=== PATIENT | female | born 1970 | race Caucasian/White ===

== ENCOUNTER 2022-11-24 14:05 | Observation (INO) | payer BC, SELFPAY ==
[2022-11-24] VITALS (27 sets, daily range): BP systolic 110–133; BP diastolic 67–96; PULSE 67–80; RESP 12–19; TEMP 36–37; O2SAT 98–100; BMI 22.6
--- NOTE | ~2022-11-24 | CT_ITS ---
EXAMINATION: CT brain wo con DATE: 11/24/2022 15:28 INDICATION: Syncope TECHNIQUE: Computed tomography (CT) of the head was performed without intravenous contrast. Sagittal and coronal reconstructions were performed. The mA was adjusted according to patient size. Iterative reconstruction technique was employed. The dose-length product was 605.33 mGy-cm. COMPARISON: None FINDINGS: No acute intracranial hemorrhage, acute infarction or abnormal extra axial fluid collection. Ventricl es are normal and symmetric. No mass/mass effect. The orbits, paranasal sinuses and mastoid air cells are normal. IMPRESSION: 1. Normal head CT. Reviewed, dictated and finalized at location A. MACY ASSOCIATE IMPRESSION: 1. Normal head CT.
--- NOTE | ~2022-11-24 | XR_ITS ---
EXAMINATION: XR chest 1V portable DATE: 11/24/2022 15:35 INDICATION: Syncope, weakness and dizziness TECHNIQUE: frontal view of the chest was obtained. COMPARISON: None FINDINGS: Calcified nodules in the right midlung zone consistent with old granulomatous disease. No other airsp jocelin opacities, pulmonary edema, pleural effusion or pneumothorax. The cardiomediastinal silhouette is normal. Visualized bones and soft tissues are unremarkable. IMPRESSION: 1. No acute cardiopulmonary disease. Reviewed, dictated and finalized at location A. O TELEVISION ANNOUNCER
--- NOTE | 2022-11-24 14:15 | ECG_ITS ---
Measurements Intervals [place] Rate: 69 P: 58 MI: 148 QRS: 68 QRSD: 87 T: 35 QT: 415 QTc: 445 Interpretive Statements SINUS RHYTHM INCOMPLETE RIGHT BUNDLE BRANCH BLOCK NONSPECIFIC ST & T-WAVE ABNORMALITY- DIFFUSE LEADS BASELINE WANDER- V4-V6 BORDERLINE ECG NO PREVIOUS ECG AVAILABLE FOR COMPARISON Electronically Signed On 11-24-2022 16:12:54 BONDING SUPERVISOR by David Barfield D.O.
[2022-11-24 14:45] LABS: Basophils Percent Auto 0.2 % (0.2-1.2); Eosinophils Absolute Auto 0.1 K/mm3 (0-0.3); Eosinophils Percent Auto 0.5 % (0-4.4); Hematocrit 50.4 % (37.0-47.0); Hemoglobin 16.4 g/dL (12.0-15.0); Immature Granulocyte Absolute 0.03 K/mm3 (0.00-0.031); Immature Granulocyte Percent A 0.3 % (0-0.5); Lymphocytes Absolute Auto 0.75 K/mm3 (0.9-3.2); Lymphocytes Percent Auto 6.6 % (18.3-44.2); Mean Corpuscular HGB Conc 32.5 g/dl (32-36); Mean Corpuscular Hemoglobin 30.9 pg (26-34); Mean Corpuscular Volume 95.1 fl (80-100); Mean Platelet Volume 9.7 fl (7.4-10.4); Monocytes Absolute Auto 0.6 K/mm3 (0.1-0.6); Monocytes Percent Auto 5.4 % (2.6-8.5); Neutrophils Absolute Auto 9.9 K/mm3 (1.3-6.7); Platelet Count Result 238 k/mm3 (150-375); Red Cell Distribution Width 12.1 % (11.5-14.5); White Blood Count 11.3 K/mm3 (4.5-10.0)
[2022-11-24 14:45] LABS: Appearance Urine Clear (Clear); Bilirubin Urine Negative (Negative); Blood Urine Negative (Negative); Color Urine Yellow (Yellow); Glucose Urine UA Negative (Negative); Ketones Urine Negative (Negative); Leukocyte Esterase Ur Negative LEU/UL (Negative); Nitrate Urine Negative (Negative); Protein Urine Negative (Negative); Urobilinogen Urine 0.2 mg/dL (<2.0); pH Urine 5.5 (5.0-9.0)
[2022-11-24 14:52] LABS: Mucus Urine Rare /lpf; RBC Urine 0-2 /hpf (0-2); WBC Urine 0-3 /hpf
[2022-11-24 14:59] LABS: Add Urine Microscopic? NO
--- NOTE | 2022-11-24 15:09 | ED.DIZZY ---
HPI - Dizziness General Chief Complaint: Dizziness Stated Complaint: dizziness Time Seen by Provider: 11/24/22 14:13 History of Present Illness HPI Narrative: 51 years old white female woke up this morning okay, went to run as usual, felt different, no stamina and with increased heart rate. Patient finished 3 miles, went back home started having intermittent dizziness associated with the severe nausea, at 11 AM her drove her to basketball game, [address], got dizzy again, gurgling and passed out for about 10 minutes, was not responding to verbal commands. Patient denies any urine incontinence or tongue bite. Currently patient feeling okay, but she feels like headache is coming on. Patient was in [place] for the last 2 days last menstrual period 1-1/2-year ago. She denies any fever, chills, vomiting, diarrhea, constipation, abdominal pain, chest pain or shortness of breath. Patient is healthy otherwise, not on any medications. Strong family history of cardiac disease. She does not smoke or drink or uses drugs. Related Data Allergies Allergy/AdvReac Type Severity Reaction Status Date / Time No Known Allergies Allergy Unknown Verified 11/24/22 14:11 Review of Systems Review of Systems: All systems reviewed & are unremarkable except as noted in HPI and below Exam Narrative: General appearance: Well-developed, well-nourished Skin: Normal color Head: Normocephalic, nontraumatic Eyes: Clear conjunctiva ENT: Oropharynx normal, ears normal, nose normal Neck: Supple, nontender Chest and respiratory: Airway patent, no respiratory distress, no accessory muscle use Heart: Regular rate/rhythm Abdomen: Soft, nontender, no organomegaly, quiet bowel sounds Vascular: Normal peripheral pulses, normal capillary refill. 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 tested, no gross motor deficit Course Vital Signs Vital signs: Vital Signs Temperature 36.0 C L 11/24/22 14:07 Pulse Rate 80 11/24/22 14:07 Respiratory Rate 16 11/24/22 14:07 Blood Pressure 129/86 11/24/22 14:07 Pulse Oximetry 100 11/24/22 14:07 Oxygen Delivery Room Air 11/24/22 14:07 Temperature 36.0 C L 11/24/22 14:07 Pulse Rate 75 11/24/22 14:21 Respiratory Rate 16 11/24/22 14:07 Blood Pressure 110/84 11/24/22 14:21 Pulse Oximetry 100 11/24/22 14:07 Oxygen Delivery Room Air 11/24/22 14:07 MDM - Dizziness MDM Narrative Medical decision making narrative: Patient is 51 years old white female, healthy otherwise came to the emergency room with intermittent dizziness and syncope allied 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 Patient reported that her heart was racing allied health professional today with the dizziness. Currently patient feeling okay. Differential diagnosis include tachyarrhythmia, seizure, electrolyte imbalance, orthostatic hypotension, or dehydration, Blood work-up, UA, EKG, chest x-ray, CT head without contrast ordered. Work-up showed no significant finding to explain patient condition. Patient will be admitted to telemetry meds, to be monitored for cardiac arrhythmia, 2D echo, carotid Doppler and a possible MRI of the brain. Differential Diagnosis Differential diagnosis: Likely other (Tachyarrhythmia, dizziness, syncope, less likely seizure.) Lab Data 11/24/22 14:33 11/24/22 14:33 Labs: Lab Results 11/24/22 11/24/22 11/24/22 Range/Units 14:32 14:32 14:33 WBC 11.3 H (4.5-10.0) K/mm3 RBC 5.30 (4.2-5.4) M/mm3 Hgb 16.4 H (12.0-15.0) g/dL Hct 50.4 H (37.0-47.0) % MCV 95.1 (80-100) fl MCH 30.9 (26-34) pg MCHC 32.5 (32-36) g/dl RD
[2022-11-24 15:17] LABS: Influenza A QL RT-PCR Negative (Negative); Influenza B QL RT-PCR Negative (Negative); RSV RNA, RT-PCR Negative (Negative); SARS-CoV-2 RNA PCR Negative
[2022-11-24 15:36] LABS: Alanine Aminotransferase 28 U/L (6-35); Albumin Level 4.9 g/dL (3.5-5.1); Alkaline Phosphatase 63 U/L (38-126); Anion Gap 8 mmol/L (8-16); Aspartate Amino Transferase 33 U/L (14-36); Bilirubin,Total 0.7 mg/dL (0.2-1.3); Blood Urea Nitrogen 19 mg/dL (7-17); Calcium 8.9 mg/dL (8.4-10.2); Carbon Dioxide 26 mmol/L (22-30); Chloride 102 mmol/L (98-107); Estimated CRCL calculation 83 ml/min; Estimated Glomerular Filt Rate > 60; Glucose 112 mg/dL (65-110); Potassium 4.2 mmol/L (3.4-5.0); Sodium 136 mmol/L (137-145)
[2022-11-24 15:47] LABS: Troponin I < 0.012 ng/mL (0.000-0.034)
[2022-11-24 16:14] LABS: Creatine Kinase 46 U/L (30-135)
[2022-11-24] MEDS: SODIUM CHLORIDE 0.9% IV 1,000 ML 125 ML IV CONT ×2 (16:22→23:47)
--- NOTE | 2022-11-24 16:57 | PM.IMHP ---
H&P: HPI History of Present Illness Date/Time: 11/24/22 16:57 Chief Complaint: Dizziness Narrative: This is a 51-year-old female patient and that woke up this morning to go on her usual run of 2-3 miles 2 to 3 times a week. The patient stated that she felt somewhat unusual. She decided to run the 3 miles and then came back home and felt dizzy on and off with some nausea at 11:00 a.m.. Patient stated that she took a nap to see if she would feel any better and she felt somewhat better. The patient then went on a [address] to a basketball game and when she was there she felt very nauseated and dizzy. Once the patient was in the car she leaned back and became very hot and nauseated. She wrote down the window to see if she would feel better and it did help. They pulled the car over at least 4 times and she thought she would vomit but she was only ranching. I blood count 11.3. Sodium 136. Troponin non reactive x2. Influenza a B RSV and COVID are all negative. The patient is being admitted to observation status on the date of service 11/24/2022. Review of Systems Review of Systems: See HPI All systems reviewed & are unremarkable except as noted in HPI and below Constitutional: Constitutional: Reports as per HPI and Reports no additional constitutional complaints Eyes: Eyes: Reports as per HPI and Reports no additional eye complaints ENT: Reports system reviewed and no additional complaints, except as documented and Reports Normal hearing present Cardiovascular: Cardiovascular: Reports no additional cardiovascular complaints Respiratory: Respiratory: Reports no additional respiratory complaints and Reports no additional respiratory complaints Gastrointestinal: Gastrointestinal: Reports as per HPI and Reports no additional gastrointestinal complaints Musculoskeletal: Musculoskeletal: Reports no additional musculoskeletal complaints Integumentary/Breasts: Skin/Breast: Reports system reviewed and no additional complaints, except as docu and Reports as per HPI Neurologic: Reports system reviewed and no additional complaints, except as documented, Reports as per HPI and Reports Normal hearing present Psychiatric: Psychiatric: Reports no additional psychiatric complaints and Reports as per HPI Endocrine: Endocrine: Reports no additional endocrine complaints Hematologic/Lymphatic: Hematologic/Lymphatic: Reports no additional hematologic/lymphatic complaints Allergic/Immunologic: Allergic/Immunologic: Reports no additional allergic/immunologic complaints [facility] Surgical History Surgical History (Updated 11/24/22 @ 22:16 by Kady Weems NP) History of D&C History of hysteroscopy Hx of breast implants, bilateral Which were later removed Kelly teeth extracted Family History Family History (Updated 11/24/22 @ 22:17 by Kady Weems NP) Other Healthy adult Grandparent Diabetes mellitus Cancer Social History Social History (Updated 11/24/22 @ 21:02 by Kady Weems NP) Social History: The patient lives with her who is the durable power state's attorney for healthcare. She has 4 children. 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 Lifelong nonsmoker. Patient occasionally has a glass a wine. She denies any marijuana or illicit drugs. Code status full code. Smoking status: Never smoker Alcohol intake: current Drinks per week: 2 Substance use: never Lack of Transportation: No Lack of Food: Never True Current Housing: I Have Housing Concerned About Future Housing: No Difficulty Paying Gas/Electric Bills: No Difficulty Paying for Meds: No Currently Unemployed: No Education: Bachelor's Degree Difficulty w/ Childcare or Family Care: No Spiritual care concerns: No Meds Home Medications and Allergies Home Medications Medication Instructions Recorded Confirmed Type multivitamin 1 tablet PO DAILY 11/24/22 11/24/22 History Allergies Allergy/AdvReac Type Jennifer
--- NOTE | 2022-11-24 17:42 | PC.NURSE ---
This patient, Sabi Zhu, was admitted to IMU Room 200-01. Patient/family oriented to hospital policies and general routines including ID bracelet, bed and alarms, visiting hours, pain management, procedures, bathroom and other care routines, personal items, smoking policy, room service/diet, and visiting hours. Information on how to activate the Rapid Response Team has been discussed. Patient/Family are encouraged to report perceived risks to care and to ask questions if they do not understand what they are told or what they should do.
[2022-11-24 19:54] LABS: Troponin I < 0.012 ng/mL (0.000-0.034)
[2022-11-24] MEDS: ONDANSETRON INJ 4 MG/2 ML VIAL IV PUSH (20:32)
[2022-11-24 23:09] LABS: Troponin I < 0.012 ng/mL (0.000-0.034)
[2022-11-24] MEDS: MECLIZINE HCL 12.5 MG TABLET PO (23:47)
[2022-11-25] VITALS (9 sets, daily range): BP systolic 100–106; BP diastolic 59–72; PULSE 69–81; RESP 12–18; TEMP 36.2–36.6; O2SAT 98–100
[2022-11-25 04:23] LABS: Basophils Percent Auto 0.2 % (0.2-1.2); Eosinophils Percent Auto 0.3 % (0-4.4); Hematocrit 41.9 % (37.0-47.0); Hemoglobin 13.7 g/dL (12.0-15.0); Immature Granulocyte Absolute 0.01 K/mm3 (0.00-0.031); Immature Granulocyte Percent A 0.2 % (0-0.5); Lymphocytes Absolute Auto 0.58 K/mm3 (0.9-3.2); Lymphocytes Percent Auto 9.4 % (18.3-44.2); Mean Corpuscular HGB Conc 32.7 g/dl (32-36); Mean Corpuscular Hemoglobin 30.5 pg (26-34); Mean Corpuscular Volume 93.3 fl (80-100); Mean Platelet Volume 10.2 fl (7.4-10.4); Monocytes Absolute Auto 0.5 K/mm3 (0.1-0.6); Monocytes Percent Auto 7.8 % (2.6-8.5); Neutrophils Absolute Auto 5.1 K/mm3 (1.3-6.7); Neutrophils Percent Auto 82.1 % (45.5-73.1); Platelet Count Result 208 k/mm3 (150-375); Red Blood Count 4.49 M/mm3 (4.2-5.4); White Blood Count 6.2 K/mm3 (4.5-10.0)
[2022-11-25 04:44] LABS: Alanine Aminotransferase 22 U/L (6-35); Albumin Level 3.8 g/dL (3.5-5.1); Alkaline Phosphatase 55 U/L (38-126); Anion Gap 7 mmol/L (8-16); Aspartate Amino Transferase 24 U/L (14-36); Bilirubin,Total 0.7 mg/dL (0.2-1.3); Blood Urea Nitrogen 17 mg/dL (7-17); Calcium 7.9 mg/dL (8.4-10.2); Carbon Dioxide 25 mmol/L (22-30); Chloride 106 mmol/L (98-107); Estimated CRCL calculation 97 ml/min; Estimated Glomerular Filt Rate > 60; Glucose 96 mg/dL (65-110); Lactate Dehydrogenase 85 U/L (120-246); Magnesium 1.9 mg/dL (1.6-2.3); Potassium 3.6 mmol/L (3.4-5.0); Sodium 138 mmol/L (137-145)
[2022-11-25 05:31] LABS: Thyroid Stimulating Hormone Reflex 0.603 uIU/mL (0.465-4.68)
[2022-11-25] MEDS: SODIUM CHLORIDE 0.9% IV 1,000 ML 125 ML IV CONT (07:39)
--- NOTE | 2022-11-25 11:08 | PM.DS ---
DS: Admitting Diagnosis Discharge Date 11/25/2022 1108 Admitting Diagnosis Dizziness Syncope Leukocytosis DS: Discharge Diagnosis Discharge Diagnosis (1) Dizziness: Code(s): R42 - Dizziness and giddiness Status: Acute Assessment and Plan: Patient presented to the emergency department with c/o persistent dizziness, nausea, sweating and syncopal episode. orthostatic vitals were positive in ED. She was treated with IV fluids. her H&H was elevated suggesting dehydration. Treaated with low dose Antivert. negative for COVID19 CT brain was negative for acute disease. MRI brain, transthoracic echocardiogram and carotid dopplers ordered and patient refused these tests. Repeat orthostatic vitals negative and she reported resolved dizziness at discharge. (2) Leukocytosis: Code(s): D72.829 - Elevated white blood cell count, unspecified Status: Acute Assessment and Plan: Likely a stress reaction. Her white count is 11.3 on admission Chest x-ray shows no acute cardiopulmonary disease. Urine is negative. repeat CBC shows normal WBC. (3) Syncope: Code(s): R55 - Syncope and collapse Status: Acute Assessment and Plan: Likely secondary to dehydration. Echocardiogram ordered and patient refused. MRI brain ordered and patient refused. Carotid US ordered and patient refused. Monitored on admission without acute ectopy or arrhythmia. DS: Summary Hospital Course Reason for hospitalization: Dizziness Hospital Course: Sabi Zhu is a 51-year-old female patient without significant medical history who woke up on the morning of admission to go on her usual run of 2-3 miles, which she does 2 to 3 times a week.? The patient stated that she felt somewhat unusual.? She decided to run the 3 miles and then came back home and felt dizzy on and off with some nausea at 11:00 a.m..? Patient stated that she took a nap to see if she would feel any better and she felt somewhat better.? The patient then went on a [address] to a basketball game and when she was there she felt very nauseated and dizzy.? Once the patient was in the car she leaned back and became very hot and nauseated.? She rolled down the window to see if she would feel better and it did help.? They pulled the car over at least 4 times and she thought she would vomit but she was only ranching.? I blood count 11.3.? Sodium 136.? Troponin non reactive x2.? Influenza a B RSV and COVID are all negative.? She was admitted to the medical floor for further management. She was continued on IV fluids. Supportive care of orthostatic hypotension and GI upset. She was counseled on need to rule our TIA and ischemic stroke. She refused MRI brain, Orthostatic BP was positive and she was treated with IV fluids. she refused further imaging stating that her symptoms were likely triggered by viral exposurre. She was counselled on risk/benefits of leaving AMA. All imaging resources were refused. She was counseled to keep her current appointment. She was discharged home in stable condition. She was counseled on follow-up and when to report complaints. She was counseled on adequate water and food intake. Status at Discharge Cognitive/behavioral status at discharge: AOx4, baseline Functional status at discharge: independent ambulation Overall status at discharge: patient is back to baseline Time Spent with Patient Time attestation: Total time spent providing and/or coordinating discharge services: Time spent: Greater than 30 minutes Exam Narrative: General:?No distress. Lying in bed. HEENT:??Normocephalic. Atraumatic. EOM intact. PERRL. No nystagmus. Sclera anicteric. Moist mucous membranes. Neck:??Supple. No JVD. No bruit or thyroid nodularity appreciated. Respiratory:?Lungs are clear to auscultation bilaterally. RR regular and unlabored. Cardiovascular:??Regular rate and rhythm with S1-S2. No murmurs, gallops or rubs. Gastrointe
== END 2022-11-25 11:55 | disposition home or self-care (01) ==
LOC: ANHED 15:57 → ANHIMU 16:51
PROVIDERS: Nurse Practitioner; Admitting Provider Student in an Organized Health Care Education/Training Program; Emergency Provider Emergency Medicine; Visit Provider Student in an Organized Health Care Education/Training Program
DX: R42 Dizziness and giddiness (principal); D72.829 Elevated white blood cell count, unspecified; R55 Syncope and collapse; R00.0 Tachycardia, unspecified; R11.0 Nausea; Z20.822 Contact with and (suspected) exposure to COVID-19; R94.31 Abnormal electrocardiogram [ECG] [EKG]; F10.90 Alcohol use, unspecified, uncomplicated; Z79.899 Other long term (current) drug therapy
CPT/HCPCS: 36415; 70450; 71045; 80053; 81003; 81025; 82550; 83605; 83615; 83735; 84443; 84484; 85025; 87637; 93005; 96361; 96374; 96375; 99285; A9270; G0378; J2405; J7030